=== PATIENT | female | born 2000 | race Caucasian/White ===

== ENCOUNTER 2024-05-28 08:00 | Outpatient (CLI) | payer OTHER | END 2024-05-28 23:59 | disposition home or self-care (01) | LOC: LAB.WC 08:00 | PROVIDERS: ATTEND Obstetrics & Gynecology | DX: Z36.85 Encounter for antenatal screening for Streptococcus B (principal) | CPT/HCPCS: 87081; 87797 ==

== ENCOUNTER 2024-05-28 12:50 | Outpatient (CLI) | payer OTHER ==
--- NOTE | 2024-05-28 15:05 | Ultrasound Report ---
PROCEDURE: OB Follow up INDICATIONS: OBESITY OUTSIDE/PRIOR DATING DATA: The below data below was generated using the DEQUAN of 06/23/2024 TECHNIQUE: Real-time scanning was performed of the fetus, with image documentation and biometric measurements. Endovaginal scanning: Not performed. COMPARISON: None. FINDINGS: General: A single living intrauterine gestation is present. Presentation: Vertex Placenta: Placental position is anterior, without previa. Amniotic fluid index: 10.2 cm, within normal limits for gestational age. heart rate: 132 beats per minute. Maternal cervical canal: Not evaluated biometrics: Biparietal diameter: 9.6 cm, 39 weeks 3 days, 99.5% Head circumference: 33.5 cm, 38 weeks 2 days, 70% Abdominal circumference: 32.9 cm, 36 weeks 6 days, 77% Femur length: 7.3 cm, 37 weeks 2 days, 71% Estimated gestational age from initial scan: 36 weeks 2 days Composite gestational age from present scan: 38 weeks 0 days Estimated weight and percentile: 3109 g, 81.2% Measurement variability in biometric dating: +/- 10 days from 12-20 weeks gestation, +/- 2 weeks from 20-30 weeks gestation, +/- 3 weeks at 30 weeks gestation or more. Other: Not applicable. IMPRESSION: 1.Single live intrauterine consistent with 38 weeks and 0 days. 2.Biparietal diameter is in the 99.5th percentile. Reviewed by: Agustín Vital MD on 05/28/2024 3:03 PM PDT Approved by: Agustín Vital MD on 05/28/2024 3:03 PM PDT Station ID: [id number]
== END 2024-05-28 12:51 | disposition home or self-care (01) ==
LOC: DI 12:50
PROVIDERS: ATTEND Nurse Practitioner
DX: O99.213 Obesity complicating pregnancy, third trimester (principal); O99.283 Endocrine, nutritional and metabolic diseases complicating pregnancy, third trimester; E03.9 Hypothyroidism, unspecified; Z3A.38 38 weeks gestation of pregnancy; Z36.85 Encounter for antenatal screening for Streptococcus B
CPT/HCPCS: 87081; 87797

== ENCOUNTER 2024-06-13 17:31 | Outpatient (CLI) | payer OTHER ==
[2024-06-13 18:01] VITALS: BP 117/74; O2SAT 95
--- NOTE | 2024-06-13 18:17 | PROVIDER PROGRESS NOTE ---
- HPI Chief Complaint: Other (headache, vision changes, abd pain) Current : Isabela is a 24 yo at 38w4d who presents today for evaluation of headache. She reports a headache starting yesterday which has persisted despite taking tylenol, 2 extra strength tablets, 2-3 times. Reports she has seen some spots in her vision. She has pain in her upper abdomen last night. She read about her symptoms online and was worried she had preeclampsia. Called clinic this afternoon and triage evaluation was recommended. She reports that now, in the dark room, her headache has improved, now 2/10. She denies current vision changes or upper abdominal pain. She denies ctx, LOF. + FM. She has had some pink-tinged discharge. Reports intercourse yesterday. Vital Signs Temperature 97.9 F 06/13/24 17:35 Heart Rate 116 H 06/13/24 17:35 Respiratory Rate 17 06/13/24 17:35 Blood Pressure 112/73 06/13/24 17:35 O2 Saturation 95 06/13/24 17:35 Temperature 97.9 F 06/13/24 17:48 Heart Rate 116 H 06/13/24 17:35 Respiratory Rate 17 06/13/24 17:35 Blood Pressure 117/74 06/13/24 17:52 O2 Saturation 95 06/13/24 17:35 If not protocol: Oxygen Flow, liters/minute - Exam SVE closed/50/-3 - Procedures OB Procedure Performed: NST Diagnosis/Indication for NST: Other (Headache) Findings: Reactive, Cat 1 - Plan Plan: 24 yo at 38w4d with: - Headache, improved BPs normotensive and no laboratory evidence of preeclampsia. No current vision changes or abdominal pain. Headache improved with dimmed lights. Plan for discharge home with return precautions. She is scheduled for elective IOL on Monday. Marvin Kimbrough MD
[2024-06-13 18:20] LABS: BASOPHILS % (AUTO) 0.3 %; EOSINOPHILS # (AUTO) 0.1 10^3/uL (0.0-0.7); EOSINOPHILS % (AUTO) 1.1 %; HCT - HEMATOCRIT 35.7 % (37.0-47.0); HGB - HEMOGLOBIN 11.9 g/dL (12.0-16.0); LYMPHOCYTES % (AUTO) 18.9 %; MEAN CORPUSCULAR HEMOGLOBIN 29.5 pg (27.0-31.0); MEAN CORPUSCULAR HGB CONC 33.3 g/dL (32.0-36.0); MEAN CORPUSCULAR VOLUME 88.6 fL (81.0-99.0); MEAN PLATELET VOLUME 11.6 fL (7.9-10.8); MONOCYTES # (AUTO) 0.8 10^3/uL (0.0-1.0); MONOCYTES % (AUTO) 7.2 %; NEUTROPHILS # (AUTO) 7.7 10^3/uL (1.5-6.6); NEUTROPHILS % (AUTO) 71.7 %; PLT - PLATELET COUNT 225 10^3/uL (130-450); RED BLOOD COUNT 4.03 10^6/uL (4.20-5.40); RED CELL DISTRIBUTION WIDTH 13.3 % (12.0-15.0); WHITE BLOOD COUNT 10.7 x10^3/uL (4.8-10.8)
[2024-06-13 18:35] LABS: ALBUMIN 3.4 g/dL (3.2-5.5); ALBUMIN/GLOBULIN RATIO 1.2 (1.0-2.2); BILIRUBIN,TOTAL 0.3 mg/dL (0.2-1.0); CALCIUM 9.2 mg/dL (8.5-10.3); CREATININE 0.6 mg/dL (0.6-1.3); POTASSIUM 3.8 mmol/L (3.5-4.5); TOTAL PROTEIN 6.2 g/dL (6.4-8.9)
[2024-06-13 18:48] LABS: CREATININE,URINE 167.1 mg/dL; PROTEIN/CREATININE RATIO,URINE 0.1 (<=0.2)
--- NOTE | 2024-06-20 16:12 | PROCEDURE REPORT ---
- HPI Current EDU 06/23/24 Gestation 38 Weeks and 4 Days 1 Para 0 Vital Signs Temperature 97.9 F 06/13/24 17:35 Heart Rate 116 H 06/13/24 17:35 Respiratory Rate 17 06/13/24 17:35 Blood Pressure 112/73 06/13/24 17:35 O2 Saturation 95 06/13/24 17:35 Temperature 97.9 F 06/13/24 17:48 Heart Rate 116 H 06/13/24 17:35 Respiratory Rate 17 06/13/24 17:35 Blood Pressure 117/74 06/13/24 17:52 O2 Saturation 95 06/13/24 17:35 If not protocol: Oxygen Flow, liters/minute - NST Procedure NST Procedure Start Date 06/13/24 Start Time 17:45 Stop Time 18:11 Vibroacoustic Stimulation Used No Patient States Movement Yes - Results and Plan Findings/Impression: Reactive, Cat 1 Plan: See separate note for plan.
== END 2024-06-13 19:09 | disposition home or self-care (01) ==
LOC: WFO 17:31 → FBP 17:33 → WFO 19:09
PROVIDERS: ATTEND Obstetrics & Gynecology
DX: O99.891 Other specified diseases and conditions complicating pregnancy (principal); R51.9 Headache, unspecified; R10.9 Unspecified abdominal pain; H53.9 Unspecified visual disturbance; Z3A.38 38 weeks gestation of pregnancy
CPT/HCPCS: 36415; 59025; 80053; 82570; 84156; 85025; 99215

== ENCOUNTER 2024-06-16 16:49 | Inpatient (IN) | payer OTHER ==
--- NOTE | 2024-06-16 16:55 | HISTORY & PHYSICAL EXAMINATION ---
Admit History - Visit Reason Visit Reason: Other (Induction of Labor) - : 1 Parity: 0 Premature: 0 Ectopic: 0 : 0 Care: positive: [facility] Risk/History: positive: Labor induction Smoking Status: Never smoker - Mother's Labs Mother's Blood Type: positive: A Mother's RH: positive: Positive GBS: positive: Group B Strep Positive Rubella Status: positive: Non-immune - Other Maternal History Other Maternal History: HPI: This 24 yo @ 39+0 weeks by sure LMP and confirmed by 6+3 week ultrasound. She is here for elective IOL at 39 weeks gestation. Upon arrival her cervix was closed/50%/-3/posterior/soft and vertex with intact membranes. PUENTE SCORE:3 We reviewed management options and she is agreeable to misoprostol for cervical ripening. She has been a patient [facility] since 33+4 weeks gestation following a move. Her course is complicated by elevated maternal BMI, hypothyroidism managed now on 75mcg levothyroxine daily. Hypothyroidism was diagnosed 2 years ago but levothyroxine was initiated in her first trimester. Did have a mild headache a few days ago but shortly resolved. Today she denies headache, visual changes or right upper quadrant abdominal pain. Denies significant N/V. Denies urinary urgency or dysuria. In the event of an emergency, accepts the administration of blood products. ROS: All other symptoms reviewed and were negative except per HPI. Labs: pending Last u/s EFW: 05/28/2024: 3109g, 81.2% @ 38 weeks. BPD 99.5% Total maternal weight gain: LMP 09/08/2023 11/01/2024 @ 6+3 weeks Final DEQUAN: 06/23/2024 OB Hx: G1: current Medical Hx: hypoactive thyroid, iron deficiency anemia, migraine without aura Surgical Hx: None. [place] teeth extraction Social Hx: Monogamous with male partner. Denies current use of alcohol or tobacco, marijuana or other recreational drugs. Reports that she is safe in current relationship. Family Hx: Denies family history of congenital anomalies Allergies: NKDA Medications: Levothyroxine 75mcg/day, LDASA, PNV Physical exam: Normocephalic, atraumatic Heart RRR w/o M/G/R Lungs CTAB Abdomen gravid, soft, nontender. EFW 3600 FHR baseline 150's, moderate variability, + accelerations, no decelerations No contractions palpated. Uterine resting tone soft SVE closed/50%/high/posterior/soft, vertex, membranes intact Bilateral LE's: 1+ edema Mood is good. Assessment: 24 yo G10 @ 39 weeks gestation by 6+3 wk U/S FHR 140's-150's Cat I GBS POSITIVE Plan: Admit to [facility] for term elective induction of labor misoprostol 25mcg PV q 4 hours until regular contractions. Will reassess after 4 doses. Continuous monitoring Jacuzzi PRN. Nitrous oxide PRN. Epidural PRN Maternal Request. GBS prophylaxis (ampicillin) to begin with onset of active labor or SROM. Patient verbally consents to my participation in her care in my role as a student nurse tunnel elastic operator lockstitch. EBONIE Moreno, Student Nurse Milking System Installer (Maria A Clark) Present participated in the evaluation and management of this patient. Agree with plan for induction of labor and subsequent labor. Boaz Lui MD (Boaz Lui) - HPI Current EDU 06/23/24 Gestation 39 Weeks and 1 Days 1 Vital Signs Temperature 97.9 F 06/16/24 16:59 Temperature 98.2 F 06/17/24 10:04 Heart Rate 105 H 06/17/24 09:25 Respiratory Rate 16 06/17/24 09:25 Blood Pressure 134/78 H 06/17/24 09:25 O2 Saturation 96 06/17/24 09:25 If not protocol: Oxygen Flow, liters/minute - NST Procedure NST Procedure Start Time 17:45 Stop Time 18:11 Meds/Allgy - Home Medications Home Medications: Ambulatory Orders Medication Instructions Recorded Confirmed Levothyroxine [Synthroid] 75 mcg PO QDAC 06/16/24 06/16/24 Aspirin [[place] Aspirin] 81 mg PO DAILY 06/17/24 06/17/24 No122/Iron/Folic Acid 1 each PO DAILY 06/17/24 06/17/24 [ Multi Tablet] - Allergies Allergies/Adverse Reactions: Allergies Allergy/AdvReac Type Severity Reaction Status Date / Time No Known Drug Allergies Allergy Verified 08/04/24 17:49 Physical - Abdominal Exam Vital Signs: Temp Pulse Resp BP Pulse Ox O2 Flow Rate 98.2 F 105 H 16 134/78 H 96 06/17/24 10:04 06/17/24 09:25 06/17/24 09:25 06/17/24 09:25 06/17/24 09:25 Plan for Labor - Plan For Labor I expect patient to be DC'd or transferred within 96 hours.: Yes
[2024-06-16] MEDS ORDERED: NIFEdipine 10 MG CAPSULE PO PRN (16:56)
[2024-06-16] MEDS ORDERED: CARBOPROST TROMETHAMINE 250 MCG/ML VIAL IM PRN (16:56)
[2024-06-16] MEDS ORDERED: OXYTOCIN 10 UNIT/ML VIAL IM PRN (16:56)
[2024-06-16] MEDS ORDERED: miSOPROStoL 200 MCG TABLET BC PRN (16:56)
[2024-06-16] MEDS ORDERED: TERBUTALINE 1 MG/ML VIAL SUBQ PRN (16:56)
[2024-06-16] MEDS ORDERED: miSOPROStoL 200 MCG TABLET PR PRN (16:56)
[2024-06-16] MEDS ORDERED: METHYLERGONOVINE 0.2 MG/ML VIAL IM PRN (16:56)
[2024-06-16] MEDS ORDERED: OXYTOCIN/SODIUM CHLORIDE 500 ML IV PRN (16:56)
[2024-06-16] MEDS ORDERED: hydrALAZINE INJ 20 MG/ML VIAL IVP PRN ×2 (16:56)
[2024-06-16] MEDS ORDERED: LABETALOL 20 MG/4 ML SYRINGE IVP PRN ×3 (16:56)
[2024-06-16] MEDS ORDERED: lidocaine 1% 20 ML MDV ID PRN (16:56)
[2024-06-16] MEDS ORDERED: TRANEXAMIC ACID IN NACL 1,000 MG/100 ML BAG IV PRN (16:56)
[2024-06-16] MEDS ORDERED: ONDANSETRON 4 MG/2 ML VIAL IVP PRN (17:03)
[2024-06-16 17:53] LABS: BASOPHILS % (AUTO) 0.3 %; EOSINOPHILS # (AUTO) 0.1 10^3/uL (0.0-0.7); EOSINOPHILS % (AUTO) 0.8 %; HCT - HEMATOCRIT 36.2 % (37.0-47.0); HGB - HEMOGLOBIN 12.1 g/dL (12.0-16.0); LYMPHOCYTES # (AUTO) 2.2 10^3/uL (1.5-3.5); LYMPHOCYTES % (AUTO) 18.5 %; MEAN CORPUSCULAR HEMOGLOBIN 29.7 pg (27.0-31.0); MEAN CORPUSCULAR HGB CONC 33.4 g/dL (32.0-36.0); MEAN CORPUSCULAR VOLUME 88.9 fL (81.0-99.0); MEAN PLATELET VOLUME 11.5 fL (7.9-10.8); MONOCYTES # (AUTO) 0.6 10^3/uL (0.0-1.0); MONOCYTES % (AUTO) 5.3 %; NEUTROPHILS % (AUTO) 74.1 %; PLT - PLATELET COUNT 240 10^3/uL (130-450); RED BLOOD COUNT 4.07 10^6/uL (4.20-5.40); RED CELL DISTRIBUTION WIDTH 13.2 % (12.0-15.0); WHITE BLOOD COUNT 12.1 x10^3/uL (4.8-10.8)
[2024-06-16] MEDS ORDERED: AMPICILLIN 2 GM in SODIUM CHLORIDE 0.9% MINIBAG 100 ML IV ONE (18:00)
[2024-06-16 18:09] LABS: ALBUMIN 3.5 g/dL (3.2-5.5); ALBUMIN/GLOBULIN RATIO 1.2 (1.0-2.2); BILIRUBIN,TOTAL 0.3 mg/dL (0.2-1.0); CALCIUM 9.5 mg/dL (8.5-10.3); CREATININE 0.7 mg/dL (0.6-1.3); POTASSIUM 3.3 mmol/L (3.5-4.5); TOTAL PROTEIN 6.4 g/dL (6.4-8.9)
[2024-06-16] MEDS: miSOPROStoL 100 MCG TABLET VG SCH (18:17)
[2024-06-16 18:55] LABS: CREATININE,URINE 243.5 mg/dL; PROTEIN/CREATININE RATIO,URINE 0.1 (<=0.2)
[2024-06-16] MEDS ORDERED: AMPICILLIN 1 GM in SODIUM CHLORIDE 0.9% MINIBAG 100 ML IV SCH (22:00)
--- NOTE | 2024-06-17 07:37 | PROVIDER PROGRESS NOTE ---
<Maria A Clark - Last Filed: 06/17/24 07:35> Labor Progress Note - Uterine Monitoring Uterine Monitoring Mode: positive: External toco Contraction Frequency (min/apart): 2-5 Contraction Intensity: positive: Mild Uterine Resting Tone: positive: Soft - Monitoring Monitor Mode: positive: External ultrasound Heart Rate Baseline: 135 Heart Rate Variability: positive: Moderate (6-25 bmp) Accelerations: positive: Present, 15x15 - Vaginal Exam Dilation (in cm): 1 Effacement (%): 50 Station: -3 - Labor Progress Note Labor Progress Note/Additional Text: S: Dozing. Feels tired as she didn't rest well throughout the night. Feels some tightening and mild discomfort through the director quality assurance but no pain with contractions. 4th dose of 25mcg misoprostol given PV at 0630. Her is supportive at the bedside. O: FHR 140s, few transient decelerations not clearly associated with contractions, resolved with positional change. SVE /-3 by RN exam A: 24 o @39+1 wks gestation by first trimester ultrasound and sure LMP GBS positive P: Continue with cervical ripening. Due for next dose of misoprostol at 10:30. Discussed possible CRB placement. Begin ampicillin for GBS prophylaxis with onset of active labor or ROM. Desires nitrous for pain management. Will support pain management plan per maternal preference. Will encouraged rest this morning and movement ambulation as day progresses EBONIE Moreno, Student Nurse Clinical Documentation Consultant <Boaz Lui - Last Filed: 06/17/24 13:03> Labor Progress Note - Labor Progress Note Labor Progress Note/Additional Text: Agree with plan. Continue cervical ripening. Will reassess after this dose of misoprostol
--- NOTE | 2024-06-17 12:15 | PHARMACY PROGRESS NOTE ---
- Best Possible Medication History Admit Date and Time: 06/16/24 7903 Processed by: Pharmacy Medications reviewed in ED?: No Medication History completed: Yes Patient Interview: Pt unable to participate Secondary Source(s): Physician records, Insurance records As the person ultimately responsible for medication therapy, providers are able to order a medication from an existing home medication list in [facility] via the "Reconcile Routine" prior to Confirmation of that medication by academic support assistant. Such practice is discouraged except when the physician, in their clinical judgment, deems that a medical need exists for a medication without regard to previous use.
[2024-06-17] MEDS: fentaNYL 100 MCG/2 ML VIAL IVP PRN (12:24)
[2024-06-17] MEDS: SODIUM CHLORIDE FLUSH 0.9% 10 ML SYRINGE IVP SCH (12:28)
[2024-06-17] MEDS: SODIUM CHLORIDE FLUSH 0.9% 10 ML SYRINGE IVP PRN (12:28)
--- NOTE | 2024-06-17 12:52 | PROVIDER PROGRESS NOTE ---
<Maria A Clark - Last Filed: 06/17/24 12:42> Labor Progress Note - Uterine Monitoring Uterine Monitoring Mode: positive: External toco Contraction Frequency (min/apart): irregular Contraction Intensity: positive: Mild Uterine Resting Tone: positive: Soft - Monitoring Monitor Mode: positive: External ultrasound Heart Rate Baseline: 145 Heart Rate Variability: positive: Moderate (6-25 bmp) Accelerations: positive: Present, 15x15 Decelerations: positive: Intermittent (<50% x20 min) Strip Review: positive: Category I, Category II - Vaginal Exam Dilation (in cm): 1 Effacement (%): thick Station: -3 Cervical Position: Anterior - Labor Progress Note Labor Progress Note/Additional Text: S: Intermittent contractions, feeling some increasing tightening. Has been relaxing since this morning's cervical check. O: FHR 140's, intermittent decelerations not associated with contractions SVE1/thick/high/anterior vertex. A: 24yo @ 39+1 weeks gestation by first trimester ultrasound. Irregular contractions with irritability. Poor toco tracing at times despite frequent adjustments by RN team. Cervical ripening s/p misoprostol x4 doses GBS positive. P: Placement of cervical ripening balloon placement by Dr. Lui. Administer next misoprostol dose as scheduled. Begin ampicillin for GBS prophylaxis per protocol with onset of active labor/ROM. Support maternal pain management requests Continue to encourage ambulation. EBONIE Moreno, Student Nurse Field Support Engineer <Boaz Lui - Last Filed: 06/17/24 13:02> Labor Progress Note - Monitoring Strip Review: negative: Category II - Labor Progress Note Labor Progress Note/Additional Text: CRB placed after discussion with patient. Tolerated well, but feeling cramping as expected. Using nitrous.Category 1 tracing. Anticipate . Epidural at patient request.
[2024-06-17] MEDS: LACTATED RINGERS 1,000 ML IV PRN (13:21)
[2024-06-17] MEDS ORDERED: ROPIVACAINE 0.2% 200 MG/100 ML BAG EP ONE (13:24)
[2024-06-17] MEDS ORDERED: LIDOCAINE 2%-EPI 1:100000 20 ML MDV ONE (13:24)
--- NOTE | 2024-06-17 15:17 | ANESTHESIA ---
Pre-Anesthesia VS, & Labs - Diagnosis labor pain - Procedure labor epidural Vital Signs: Temp Pulse Resp BP Pulse Ox O2 Flow Rate 36.8 C 105 H 16 134/78 H 96 06/17/24 10:04 06/17/24 09:25 06/17/24 09:25 06/17/24 09:25 06/17/24 09:25 Height: 5 ft 4 in Weight (kg): 126.099 kg Body Mass Index: 47.7 BMI Classification: Morbidly Obese - NPO Other - Is Patient ?: Yes - Lab Results Current Lab Results: Laboratory Tests 06/16/24 18:44: Blood Type Recheck A POSITIVE 06/16/24 17:40: Sodium 134 L, Potassium 3.3 L, Chloride 102, Carbon Dioxide 22, Anion Gap 10.0, BUN 11, Creatinine 0.7, Estimated GFR (MDRD) 101, Glucose 149 H, Calcium 9.5, Total Bilirubin 0.3, AST 15, ALT 11, Alkaline Phosphatase 109, Total Protein 6.4, Albumin 3.5, Globulin 2.9, Albumin/Globulin Ratio 1.2 06/16/24 17:40: WBC 12.1 H, RBC 4.07 L, Hgb 12.1, Hct 36.2 L, MCV 88.9, MCH 29.7, MCHC 33.4, RDW 13.2, Plt Count 240, MPV 11.5 H, Neut # (Auto) 9.0 H, Lymph # (Auto) 2.2, [place] # (Auto) 0.6, Eos # (Auto) 0.1, Baso # (Auto) 0.0, Absolute Nucleated RBC 0.00, Nucleated RBC % 0.0 06/16/24 17:40: Blood Type A POSITIVE, Antibody Screen NEGATIVE 06/16/24 17:40: TSH 0.39 Fish Bones: 06/16/24 17:40 06/16/24 17:40 Home Medications and Allergies Home Medications: Ambulatory Orders Levothyroxine [Synthroid] 75 mcg PO QDAC 06/16/24 Aspirin [[place] Aspirin] 81 mg PO DAILY 06/17/24 No122/Iron/Folic Acid [ Multi Tablet] 1 each PO DAILY 06/17/24 Active Medications Acetaminophen (Acetaminophen 500 Mg Tablet) 1,000 mg PO Q8H PRN PRN Reason: Mild Pain or Fever>38C(100.4F) Carboprost Tromethamine (Carboprost Tromethamine 250 Mcg/Ml Vial) 250 mcg IM .ONCE PRN PRN Reason: Hemorrhage Fentanyl (Fentanyl 100 Mcg/2 Ml Vial) 50 mcg IVP Q1H PRN PRN Reason: Severe Pain (score 7-10) Last Admin: 06/17/24 12:27 Dose: 50 mcg Hydralazine HCl (Hydralazine Inj 20 Mg/Ml Vial) 5 - 10 mg IVP Q20M PRN; Protocol PRN Reason: SBP> or= 160 OR DBP> or= 110 Hydralazine HCl (Hydralazine Inj 20 Mg/Ml Vial) 10 mg IVP .ONCE PRN; Protocol PRN Reason: SBP> or= 160 OR DBP> or= 110 Lactated Ringer's (Lr) 500 mls @ 999 mls/hr IV PRN PRN PRN Reason: distress Last Admin: 06/17/24 13:21 Dose: 999 mls/hr Oxytocin/Sodium Chloride (Pitocin/Sodium Chloride) 500 mls @ 999 mls/hr IV PRN PRN; Protocol PRN Reason: POST- HEMORR PREVENTION Tranexamic Acid (Tranexamic 1,000 Mg/100ml-Nacl) 1,000 mg in 100 mls @ 600 mls/hr IV Q30M PRN PRN Reason: EBL >1200mL and within 3hr Ampicillin Sodium 1 gm/ Sodium (Chloride) 100 mls @ 200 mls/hr IV Q4H ESTEFANI Labetalol HCl (Labetalol 20 Mg/4 Ml Syringe) 20 - 80 mg IVP Q10M PRN; Protocol PRN Reason: SBP> or= 160 OR DBP> or= 110 Labetalol HCl (Labetalol 20 Mg/4 Ml Syringe) 20 mg IVP .ONCE PRN; Protocol PRN Reason: SBP> or= 160 OR DBP> or= 110 Labetalol HCl (Labetalol 20 Mg/4 Ml Syringe) 20 - 40 mg IVP Q10M PRN; Protocol PRN Reason: SBP> or= 160 OR DBP> or= 110 Lidocaine HCl (Lidocaine 1% 20 Ml Mdv) 20 ml ID .ONCE PRN PRN Reason: PERINEAL REPAIR Stop: 06/19/24 16:56 Methylergonovine Maleate (Methylergonovine 0.2 Mg/Ml Vial) 0.2 mg IM .ONCE PRN PRN Reason: Hemorrhage Misoprostol (Misoprostol 200 Mcg Tablet) 600 mcg BC .ONCE PRN PRN Reason: Hemorrhage Misoprostol (Misoprostol 200 Mcg Tablet) 800 mcg NC .ONCE PRN PRN Reason: Hemorrhage Misoprostol (Misoprostol 100 Mcg Tablet) 25 mcg VG Q4H [facility] Last Admin: 06/17/24 06:30 Dose: 25 mcg Nifedipine (Nifedipine 10 Mg Capsule) 10 - 20 mg PO Q20M PRN; Protocol PRN Reason: SBP> or= 160 OR DBP> or= 110 Ondansetron HCl (Ondansetron 4 Mg/2 Ml Vial) 4 mg IVP Q6HR PRN PRN Reason: Nausea / Vomiting Oxytocin (Oxytocin 10 Unit/Ml Vial) 10 unit IM .ONCE PRN PRN Reason: Step One if no IV access. Sodium Chloride (Sodium Chloride Flush 0.9% 10 Ml Syringe) 10 ml IVP PRN PRN PRN Reason: NEEDED PER PROVIDER ORDERS Last Admin: 06/17/24 13:21 Dose: 10 ml Sodium Chloride (Sodium Chloride Flush 0.9% 10 Ml Syringe) 10 ml IVP Q8H [facility] Last Admin: 06/17/24 12:28 Dose: 10 ml Terbutaline Sulfate (Terbutaline 1 Mg/Ml Vial) 0.25 mg SUBQ .ONCE PRN PRN Reason: Tachystole Levothyroxine [Synthroid] 75 mcg PO QDAC 06/16/24 Aspirin [[place] Aspirin] 81 mg PO DAILY 06/17/24 No122/Iron/Folic Acid [ Multi Tablet] 1 each PO DAILY 06/17/24 Allergies/Adverse Reactions: Allergies Allergy/AdvReac Type Severity Reaction Status Date / Time No Known Drug Allergies Allergy Verified 06/16/24 17:49 Anes History & Medical History - Anesthetic History Anesthesia Complications: reports: No previous complications Family history of Anesthesia Complications: Denies Family history of Malignant Hyperthermia: Denies - Medical History Cardiovascular: reports: None Pulmonary: reports: None Gastrointestinal: reports: None Urinary: reports: None Neuro: reports: Migraines Musculoskeletal: reports: None Endocrine/Autoimmune: reports: HyPOthyroidism Blood Disorders: reports: None Skin: reports: None Smoking Status: Never smoker Psychosocial: reports: No issues indicated History of Cancer?: No Other Past Medical History: morbid obesity - Obstetrical History : 1 Parity: 0 Events: reports: Labor induction Exam General: Alert, Oriented x3, Cooperative Dental: WNL Mouth Openin Fingerbreadth Neck Mobility: Normal Mallampati classification: III Thyromental Distance: less than 4 cm Respiratory: Lungs clear Cardiovascular: Regular rate Plan Anesthesia Type: Epidural Consent for Procedure(s) Verified and Reviewed: Yes Code Status: Attempt Resuscitation ASA classification: 3-Severe systemic disease Is this case an emergency?: No
[2024-06-17] MEDS ORDERED: NALOXONE 0.4 MG/ML VIAL IVP PRN (15:18)
[2024-06-17] MEDS ORDERED: ePHEDrine 50 MG/ML VIAL IVP PRN (15:18)
[2024-06-17] MEDS ORDERED: METOCLOPRAMIDE 10 MG/2 ML VIAL IVP PRN (15:18)
[2024-06-17] MEDS ORDERED: NALBUPHINE 10 MG/ML AMP IVP PRN (15:18)
[2024-06-17] MEDS ORDERED: ONDANSETRON 4 MG/2 ML VIAL IVP PRN (15:18)
[2024-06-17] MEDS ORDERED: diphenhydrAMINE INJ 50 MG/ML VIAL IVP PRN (15:18)
[2024-06-17] MEDS: LACTATED RINGERS 1,000 ML IV SCH (16:41)
--- NOTE | 2024-06-17 16:47 | PROVIDER PROGRESS NOTE ---
Labor Progress Note - Uterine Monitoring Uterine Monitoring Mode: positive: External toco Contraction Frequency (min/apart): 2-4 Contraction Intensity: positive: Mild - Monitoring Monitor Mode: positive: External ultrasound Heart Rate Baseline: 135 Heart Rate Variability: positive: Moderate (6-25 bmp) Accelerations: positive: Present, 15x15 Decelerations: positive: None Strip Review: positive: Category I - Labor Progress Note Labor Progress Note/Additional Text: CRB still in place. Did have intermittent late and variable decelerations followed by category 1 tracing. Discussed position changes and fluid level. it had been category 1, started oxytocin, but intermittent variable decelerations. Concerning FHT, but will continue to monitor. Contractions late in position, but mostly short in duration, making variable more likely. If tolerating, will continue labor in homes of engaging head as balloon is expelled and possible amnioinfusion. Patient has epidural in place. Discussed risks of intolerance with patient.
[2024-06-17] MEDS: OXYTOCIN/SODIUM CHLORIDE 500 ML IV SCH (17:05)
[2024-06-17] MEDS: AMPICILLIN 2 GM in SODIUM CHLORIDE 0.9% MINIBAG 100 ML IV ONE (19:31)
--- NOTE | 2024-06-17 19:42 | PROVIDER PROGRESS NOTE ---
Labor Progress Note - Uterine Monitoring Uterine Monitoring Mode: positive: External toco Contraction Frequency (min/apart): 2-4 - Monitoring Monitor Mode: positive: External ultrasound Heart Rate Baseline: 145 Heart Rate Variability: positive: Moderate (6-25 bmp) Accelerations: positive: Present, 15x15 Decelerations: positive: Late, Intermittent (<50% x20 min) - Vaginal Exam Dilation (in cm): 5 Effacement (%): 50 Station: -3 Cervical Position: Midposition - Labor Progress Note Labor Progress Note/Additional Text: CRB removed with gentle traction. Now 5 cm. Noemy regularly still. More frequent mixture of late and variable decelerations. Decreased oxytocin to 2munits/min. Still having accelerations and moderate variability with periods of minimal. No sign of acute acidemia. Can continue at current dose an assess. Plan for head engagement, amniotomy, and likely amnioinfusion.
[2024-06-17] MEDS: ACETAMINOPHEN 500 MG TABLET PO PRN (20:37)
[2024-06-17] MEDS: AMPICILLIN 1 GM in SODIUM CHLORIDE 0.9% MINIBAG 100 ML IV SCH (23:48)
[2024-06-17] MEDS: ROPIVACAINE 0.2% 200 MG/100 ML BAG EP PRN (23:57)
--- NOTE | 2024-06-18 04:38 | PROVIDER PROGRESS NOTE ---
Labor Progress Note - Uterine Monitoring Uterine Monitoring Mode: positive: External toco Contraction Frequency (min/apart): 2-4 - Monitoring Monitor Mode: positive: External ultrasound Heart Rate Baseline: 150 Heart Rate Variability: positive: Moderate (6-25 bmp) Accelerations: positive: Present, 15x15 Decelerations: positive: Late, Intermittent (<50% x20 min) - Vaginal Exam Dilation (in cm): 6 Effacement (%): 80 Station: -1 - Labor Progress Note Labor Progress Note/Additional Text: Patient remains relatively unchanged. After consent, amniotomy was performed. Small amount of clear fluid. IUPC placed oxytocin titration and possible IV infusion. Patient has had intermittent category 2 tracing followed by periods of category 1. Overall reassuring.
--- NOTE | 2024-06-18 07:59 | PROVIDER PROGRESS NOTE ---
Labor Progress Note - Uterine Monitoring Uterine Monitoring Mode: positive: IUPC Contraction Frequency (min/apart): 2-3 Contraction Intensity: positive: Strong - Monitoring Monitor Mode: positive: External ultrasound Heart Rate Baseline: 150 Heart Rate Variability: positive: Absent; amplitude undetectable, Minimal (0-5 bpm), Moderate (6-25 bmp) Accelerations: positive: Present, 15x15 Decelerations: positive: Late, Intermittent (<50% x20 min) Strip Review: positive: Category II - Labor Progress Note Labor Progress Note/Additional Text: Patient remains unchanged. She desires section at this time. We discussed recommendation of waiting 4 hours of adequate MVUs monitored with internal monitors on oxytocin and we are approximately 3.5 hours, so this seems reasonable at her request. Can recheck prior to OR if she desires. section was recommended. Risks, benefits and alternatives were discussed including but not limited to infection, bleeding that may require blood products or hysterectomy for life saving measures, injury to surrounding organs including but not limited to bowel, bladder, ureters, tubes and ovaries and/or the baby. Should injury occur it could require longer/additional surgery to repair. The patient stated understanding and desired to proceed. All questions were answered posed by patient.
[2024-06-18] MEDS ORDERED: ceFAZolin (2G) 2 GM in SODIUM CHLORIDE 0.9% MINIBAG 100 ML IV SCH (08:00)
[2024-06-18] MEDS ORDERED: AZITHROMYCIN INJ 500 MG in SODIUM CHLORIDE 0.9% 250 ML IV SCH (08:00)
[2024-06-18] MEDS ORDERED: LACTATED RINGERS 1,000 ML IV SCH ×3 (08:00→11:00)
[2024-06-18] MEDS ORDERED: CEFAZOLIN IV SCH (08:05)
[2024-06-18] MEDS ORDERED: SODIUM CHLORIDE 0.9% IV SCH (08:05)
[2024-06-18] MEDS ORDERED: ceFAZolin 1 GM VIAL ONE (08:09)
[2024-06-18] MEDS ORDERED: ceFAZolin 3 GM in SODIUM CHLORIDE 0.9% 100ML 100 ML IV SCH (09:00)
[2024-06-18] MEDS ORDERED: fentaNYL 100 MCG/2 ML VIAL ONE ×3 (09:02→11:07)
[2024-06-18] MEDS ORDERED: PROPOFOL 200 MG/20 ML VIAL IVP ONE (09:05)
[2024-06-18] MEDS ORDERED: ROCURONIUM 50 MG/5 ML VIAL ONE (09:38)
[2024-06-18] MEDS ORDERED: ePHEDrine 50 MG/ML VIAL IVP PRN (09:47)
[2024-06-18] MEDS ORDERED: MORPHINE 2 MG/ML CARPUJECT IVP PRN (09:47)
[2024-06-18] MEDS ORDERED: METOCLOPRAMIDE 10 MG/2 ML VIAL IVP PRN (09:47)
[2024-06-18] MEDS ORDERED: NALOXONE 0.4 MG/ML VIAL IVP PRN (09:47)
[2024-06-18] MEDS ORDERED: ATROPINE ABBOJECT 1 MG/10 ML SYRINGE IVP PRN (09:47)
[2024-06-18] MEDS ORDERED: ONDANSETRON 4 MG/2 ML VIAL IVP PRN (09:47)
[2024-06-18] MEDS ORDERED: HYDROmorphone 0.5 MG/0.5 ML SYRINGE IVP PRN (09:47)
[2024-06-18] MEDS ORDERED: TRANEXAMIC ACID 1,000 MG/10 ML VIAL ONE (09:51)
[2024-06-18] MEDS ORDERED: ROPIVACAINE 0.5% PF 20 ML VIAL ONE (10:10)
[2024-06-18] MEDS ORDERED: ONDANSETRON ODT 4 MG TABLET TL PRN ×2 (10:24)
[2024-06-18] MEDS ORDERED: SODIUM CHLORIDE FLUSH 0.9% 10 ML SYRINGE IVP PRN (10:24)
[2024-06-18] MEDS ORDERED: OXYTOCIN/SODIUM CHLORIDE 500 ML IV PRN (10:24)
[2024-06-18] MEDS ORDERED: DEXAMETHASONE 4 MG/ML VIAL ONE (10:26)
--- NOTE | 2024-06-18 10:26 | OPERATIVE REPORT ---
Operative Report - General Admit Date: 06/16/24 Planned Procedure: Primary low-transverse section Pre-Op Diagnosis: Failure to progress Procedure Performed: Primary low-transverse section Post Op Diagnosis: Status post primary low-transverse section - Procedure Note Primary Surgeon: Boaz Lui MD Secondary Surgeon: EBONIE Moreno Anesthesia Provider: Mariah Garcia CRNA Anesthesia Technique: General ET tube Pathology: None Estimated Blood Loss (mL): 850 Findings: Normal-appearing uterus, tubes, ovaries. Healthy with Apgars of 8/9. Nuchal cord . Complications: None - Other Other Information/Narrative: Patient is a 24-year-old female who was being induced at term. She was seen misoprostol initially for cervical ripening followed by cervical ripening balloon, oxytocin, amniotomy. She had intermittent category 2 tracing, but was overall reassuring. After amniotomy with internal monitoring, she failed to progress and remained 5 to 6 cm. She requested a section and has been monitored for approximately 4 hours without change with adequate [place] units. section was recommended. Risks, benefits and alternatives were discussed including but not limited to infection, bleeding that may require blood products or hysterectomy for life saving measures, injury to surrounding organs including but not limited to bowel, bladder, ureters, tubes and ovaries and/or the baby. Should injury occur it could require longer/additional surgery to repair. The patient stated understanding and desired to proceed. All questions were answered posed by patient. Prior to being taken to the OR, 3 g of cefazolin and 500 mg of azithromycin were administered. The patient was taken to the operating room where regional anesthesia attempted, but was not obtained. She had an epidural previously that had worn off, and the spinal did not set up. She then as then prepared and draped in the usual sterile fashion in the dorsal supine position with a leftward tilt displacing the uterus. Hull was draining to gravity. SCDs were on bilateral lower extremities. Time out was taken. The patient was then put under general anesthesia. A pfannenstiel skin incision was then made with the scalpel and carried through to the underlying layer of fascia. The fascia was incised in the midline and the incision extended laterally with the Hannah scissors. The superior aspect of the facial incision was then grasped with the Shabnam clamps, elevated and the underlying rectus muscles dissected off sharply. Attention was then turned to the inferior aspect of this incision which in a similar fashion was grasped, elevated with the Shabnam clamps and the rectus muscle dissected off sharply. The rectus muscles were in the midline. The peritoneum identified, grasped with the pick-ups and entered sharply with the Metzenbaum scissors. The peritoneal incision was then extended superiorly and inferiorly with good visualization of the bladder. The bladder blade was inserted. The vesicouterine peritoneum was identified, grasped with the pick-ups, and entered sharply with Metzenbaum scissors. This incision was then extended laterally and the bladder flap created digitally. The bladder blade was reinserted. The lower uterine segment was identified and incised in a transverse fashion with the scalpel. The uterine incision was then extended bluntly laterally. The bladder blade was removed. The fetus was in a cephalic presentation. The infants head delivered atraumatically. The anterior shoulders were delivered followed by the posterior shoulders then the remainder of the body. The infants mouth and nose were bulb suctioned. The umbilical cord was clamped times two and cut. The was handed to the pediatric team. The placenta was removed with gentle traction. Oxytocin was added to the IV fluid and was allowed to run freely. The uterus was exteriorized and cleared of all clots and debris. The uterine incision was inspected and found to be without any extensions and was repaired with 0 Vicryl in a running, locked fashion. A second imbricating layer was performed. Upon inspection, the repaired hysterotomy was found to be hemostatic. The uterus was firm and returned to the abdomen. The gutters were cleared of all clots and debris. The muscle layer was examined and found to be hemostatic. The fascia was reapproximated with 0 Vicryl in a running fashion. The subcutaneous tissue was closed with 2 layers of 2-0 Vicryl. The skin was closed in a subcuticular fashion with 4-0 Monocryl. The patient tolerated the procedure well. Sponge, lap and needle counts were correct times three. The patient was taken to the recovery room in stable condition. I appreciate the assistance of EBONIE Moreno during this procedure, and the assistance in retraction, visualization, dissection, and overall assistance during the case were instrumental to the patient's wellbeing.
[2024-06-18] MEDS: LACTATED RINGERS 800 ML IV ONE ×2 (10:51→11:19)
[2024-06-18] MEDS: fentaNYL 100 MCG/2 ML VIAL IVP PRN (11:09)
[2024-06-18] MEDS: ACETAMINOPHEN 500 MG TABLET PO SCH (12:00)
[2024-06-18] MEDS: KETOROLAC 30 MG/ML VIAL IVP SCH (12:00)
--- NOTE | 2024-06-18 12:21 | ANESTHESIA POST OP EVALUATION ---
Anesthesia Post Eval - Post Anesthesia Eval Vitals: Last Vital Signs Temp 36.5 C 06/18/24 11:15 Pulse 101 H 06/18/24 11:15 Resp 16 06/18/24 11:15 BP 144/84 H 06/18/24 11:15 Pulse Ox 99 06/18/24 11:15 O2 Flow Rate CV Function Including HR & BP: Stable Pain Control: Satisfactory Nausea & Vomiting: Negative Mental Status: Baseline Respiratory Status: Airway Patent Hydration Status: Satisfactory Anesthesia Complications: None
[2024-06-18] MEDS ORDERED: SODIUM CHLORIDE FLUSH 0.9% 10 ML SYRINGE IVP SCH (17:00)
[2024-06-19] MEDS: DOCUSATE SODIUM 100 MG CAPSULE PO SCH (00:36)
[2024-06-19 05:35] LABS: BASOPHILS % (AUTO) 0.2 %; EOSINOPHILS % (AUTO) 0.1 %; HCT - HEMATOCRIT 33.2 % (37.0-47.0); LYMPHOCYTES # (AUTO) 1.6 10^3/uL (1.5-3.5); LYMPHOCYTES % (AUTO) 8.9 %; MEAN CORPUSCULAR HEMOGLOBIN 29.6 pg (27.0-31.0); MEAN CORPUSCULAR HGB CONC 33.1 g/dL (32.0-36.0); MEAN CORPUSCULAR VOLUME 89.5 fL (81.0-99.0); MEAN PLATELET VOLUME 11.9 fL (7.9-10.8); MONOCYTES # (AUTO) 0.6 10^3/uL (0.0-1.0); MONOCYTES % (AUTO) 3.2 %; NEUTROPHILS # (AUTO) 15.9 10^3/uL (1.5-6.6); NEUTROPHILS % (AUTO) 86.3 %; PLT - PLATELET COUNT 222 10^3/uL (130-450); RED BLOOD COUNT 3.71 10^6/uL (4.20-5.40); RED CELL DISTRIBUTION WIDTH 13.5 % (12.0-15.0); WHITE BLOOD COUNT 18.4 x10^3/uL (4.8-10.8)
[2024-06-19] MEDS: SIMETHICONE CHEW 80 MG TABLET PO PRN (06:00)
[2024-06-19] MEDS ORDERED: LEVOTHYROXINE 75 MCG TABLET PO SCH (07:00)
[2024-06-19] MEDS: ENOXAPARIN 40 MG/0.4 ML SYRINGE SUBQ SCH (08:40)
[2024-06-19] MEDS: IBUPROFEN 600 MG TABLET PO SCH (12:00)
--- NOTE | 2024-06-19 20:06 | PROVIDER PROGRESS NOTE ---
Subjective - Prog Note Date Prog Note Date: 06/19/24 Prog Note Time: 14:00 - Subjective Subjective: feeling tired. not very well this minute. has gotten up earlier. Objective - Vital Signs/Intake & Output Vital Signs: reviewed Intake & Output: Intake & Output 06/16/24 06/17/24 06/18/24 06/19/24 23:59 23:59 23:59 23:59 Intake Total 450 376.733 200 800 Output Total 50 850 Balance 450 326.733 -650 800 - Objective General Appearance: positive: No acute distress, Other Respiratory: positive: No respiratory distress Abdomen: positive: Non-tender, Other (wound healing well. bandage removed. steri strips in place. no erythema.) Skin: positive: Color nml Extremities: positive: Non-tender, Pedal edema (2+) - Lab Results Fish Bones: 06/19/24 05:22 06/16/24 17:40 Other Labs: Lab Results x24hrs 06/19/24 Range/Units 05:22 WBC 18.4 H (4.8-10.8) x10^3/uL RBC 3.71 L (4.20-5.40) 10^6/uL Hgb 11.0 L (12.0-16.0) g/dL Hct 33.2 L (37.0-47.0) % MCV 89.5 (81.0-99.0) fL MCH 29.6 (27.0-31.0) pg MCHC 33.1 (32.0-36.0) g/dL RDW 13.5 (12.0-15.0) % Plt Count 222 (130-450) 10^3/uL MPV 11.9 H (7.9-10.8) fL Neut # (Auto) 15.9 H (1.5-6.6) 10^3/uL Lymph # (Auto) 1.6 (1.5-3.5) 10^3/uL Boundary # (Auto) 0.6 (0.0-1.0) 10^3/uL Eos # (Auto) 0.0 (0.0-0.7) 10^3/uL Baso # (Auto) 0.0 (0.0-0.1) 10^3/uL Absolute Nucleated RBC 0.00 x10^3/uL Nucleated RBC % 0.0 /100WBC Assessment/Plan - Problem List (1) Delivery by section Impression: recovery within normal. encouraged ambulation, shower. IV removed. rest.
[2024-06-20 11:10] VITALS: BP 117/72; O2SAT 98
--- NOTE | 2024-06-20 13:12 | DISCHARGE SUMMARY ---
Discharge Summary Admit Date: 06/16/24 Discharge Date: 06/20/24 Discharging Provider: Marvin Kimbrough MD Discharge Disposition: 01 Home, Self Care - HPI History of Present Illness: Admission Diagnosis: - SIUP at 39w0d - Hypothyroidism - Class 3 obesity - GBS + - Rh + - Rubella non immune - Varicella non immune Final Diagnosis: - Same, delivered Procedures: primary LTCS, EBL 850cc Hospital Course: Isabela is a 24 yo who presented for elective IOL. She underwent cervical ripening with misoprostol followed by cervical ripening balloon and then oxytocin and amniotomy. She progressed to 5-6cm but then was unchanged after 4 hrs of adequate MVUs and requested delivery. pLTCS was uncomplicated. course has been uncomplicated. Condition on Discharge: SUBJECTIVE: day 2 The patient feels well overall. Pain is well controlled with current medications. The baby is doing well. She is breastpumping and feeding baby via bottle. She is ambulating well, tolerating normal diet, urinating without difficulty. Flatus has been passed and she has had a BM. Lochia is reported as light She would like to go home today. OBJECTIVE: Vital signs reviewed. GENERAL: NAD CHEST: non labored respirations ABD: soft, appropriately TTP fundus firm INCISION: Incision is clean and dry with steri strips in place. EXT: trace lower extremity edema; No evidence of DVT LAB & IMAGING STUDIES: See below PLAN: Plan for discharge home with follow up in clinic in 1 week. Reviewed home care instructions and medications. Patient counseled regarding signs and symptoms of infection, excessive bleeding, vaginal rest and activity restrictions. Contraceptive plans to be formalized at visit. - ALLERGIES Allergies/Adverse Reactions: Allergies Allergy/AdvReac Type Severity Reaction Status Date / Time No Known Drug Allergies Allergy Verified 06/16/24 17:49 - MEDICATIONS Home Medications: Ambulatory Orders Medication Instructions Recorded Confirmed Levothyroxine [Synthroid] 75 mcg PO QDAC 06/16/24 06/16/24 Aspirin [Dimock Aspirin] 81 mg PO DAILY 06/17/24 06/17/24 No122/Iron/Folic Acid 1 each PO DAILY 06/17/24 06/17/24 [ Multi Tablet] Acetaminophen [Tylenol] 650 mg PO Q6H PRN #30 tab 06/20/24 Ibuprofen [Motrin] 600 mg PO Q6H PRN #30 tab 06/20/24 Sennosides/Docusate Sodium 1 each PO 1-2XD #14 tab 06/20/24 [Senna-Docusate Sodium Tablet] oxyCODONE [Roxicodone] 5 mg PO Q6H #10 tablet 06/20/24 - LABS Result Diagrams: 06/19/24 05:22 06/16/24 17:40
[2024-06-20] MEDS: oxyCODONE 5 MG TABLET PO PRN (14:00)
[2024-06-20] MEDS: MEASLES,MUMPS & RUBELLA VACC 0.5 ML VIAL SUBQ ONE (14:01)
[2024-06-20] MEDS ORDERED: HEPATITIS B VACCINE (PED) 10 MCG/0.5 ML SYRINGE IM ONE (14:23)
[2024-06-20] MEDS: VARICELLA VACCINE LIVE/PF 1,350 UNIT/0.5 ML VIAL SUBQ ONE (14:40)
--- NOTE | 2024-06-20 16:43 | Labor Flowsheet ---
Labor Flowsheet Datetime Report Generated by CPN: 06/20/2024 16:43 Datetime: 06/18/2024 19:01 Membranes Ruptured Date/Time: 06/18/2024 04:30 Cervical Ripening Agents Other: Cytotec Datetime: 06/18/2024 08:16 VITAL SIGNS NBP Sys/Kaye/Mean (mmHg): 116 : 62 : 75 Pulse: 113 LaborFlag: Labor Datetime: 06/18/2024 08:13 Patient Care Comments: EFM disconnected, patient transported from 2102 to OR 1 via bed. Datetime: 06/18/2024 08:10 SpO2 (%): 98 Datetime: 06/18/2024 08:07 Contraction Comments: IUPC removed Datetime: 06/18/2024 08:00 MEDICATIONS Pitocin (milliunits): Discontinued COMMUNICATION Communication: RN at Bedside; RN Reviewed Strip; Provider at Bedside Communication Comments: Dr. Lui at bedside discussing POC with patient. Patient requesting C/S at this time. Datetime: 06/18/2024 07:43 Exam by: K. Burckhardt, SALES ORDER CLERK Vaginal Exam Comments: unchanged Datetime: 06/18/2024 06:30 UTERINE ACTIVITY Monitor Mode: External Frequency (min): 2-4 Quality: Moderate Pattern: Normal: <= 5 Contractions in 10 Minutes Resting Tone (Palpate): Relaxed MONTE[place] UNITS (Computed) Contractions in Ten Minutes: 5 IUPC Average Intensity: 55 IUPC Average Resting Tone: 20 [place] Units (mmHg): 175 ASSESSMENT A Monitor Mode: External US FHR Baseline Rate : 150 Variability: Moderate 6-25 bpm Accelerations: 15X15 Decelerations: None Category: Category I Datetime: 06/18/2024 05:01 Temperature (C): 36.7 Datetime: 06/18/2024 04:30 Monitor Interventions for UA: IUPC Inserted Membrane Status: Ruptured Membranes Rupture Method: Artificial Amniotic Fluid Color: Clear Amniotic Fluid Amount: Small Amniotic Fluid Odor: Normal Datetime: 06/18/2024 04:11 Medication Comments: 500cc lR bolus Provider Notified (Name): Dr.Hu Datetime: 06/18/2024 03:29 Duration (sec): 60-100 Datetime: 06/18/2024 01:29 Comments: min-mod variability Datetime: 06/18/2024 01:14 FHR Baseline Changes: No Baseline Change Datetime: 06/18/2024 00:49 Patient Position/Activity: High Fowlers Datetime: 06/18/2024 00:47 Vaginal Bleeding: Scant Datetime: 06/17/2024 23:48 Antibiotics: Ampicillin IV 1 Gm Datetime: 06/17/2024 23:45 Pitocin Checklist: At Least 1 Acceleration of 15 bpm x 15 Seconds in 30 Minutes or Adequate Variabi lity; No More than 1 Late Deceleration Occurred in Past 30 Minutes; No More than 2 Variable Decelerat ions > 60 Seconds in Duration and decreasing >60 bpm in 30 minutes; No More than 5 Uterine Contractio ns in 10 Minutes for any 20 Minute Interval; Uterus Palpates Soft between Contractions Datetime: 06/17/2024 23:21 Monitor Interventions for FHR: Ultrasound Adjusted Datetime: 06/17/2024 21:31 I/O Interventions: Clear Liquids Given Datetime: 06/17/2024 20:52 VAGINAL EXAM Dilatation (cm): 6.0 Effacement (%): 80 Station: -1 Cervix, Consistency: Soft Cervix, Position: Midposition Datetime: 06/17/2024 20:37 Analgesics/Sedatives: Tylenol (mg) @ 1000 Datetime: 06/17/2024 20:33 PAIN Pain Scale: 2 Pain Assessment Comments: pt requesting tylenol for HUNT Datetime: 06/17/2024 19:57 Provider Reviewed Strip: Yes Datetime: 06/17/2024 19:42 DTR's/Clonus: No Clonus Breath Sounds, Left: Clear and Equal Breath Sounds, Right: Clear and Equal Datetime: 06/17/2024 19:09 Headache: Generalized Maternal Comments: pt reports feeling slight HUNT on left jew, states it started shortly after epi dural placement, rating 1/10 TEACHING Plan of Care: Plan of Care Discussed Labor/Induction: Antibiotic Use Datetime: 06/17/2024 15:15 Oxygen Method: Room Air Datetime: 06/17/2024 14:43 PATIENT CARE IV/Blood Work: IV Infusing per Order Datetime: 06/17/2024 14:38 Anesthesia Comments: MEDICAID SPECIALIST changing pump setting Datetime: 06/17/2024 14:30 Notification Reason: Status Update; Status Datetime: 06/17/2024 14:13 Pain Coping: Sleeping Datetime: 06/17/2024 14:10 Vital Sign Comments: States she has a feeling in her chest, requests HOB to be raised Datetime: 06/17/2024 14:01 Epidural Procedure Other: Pump Started Datetime: 06/17/2024 14:00 Pain Presence: Intermittent Pain Type: Contraction Pain Location: Abdomen Pain Relief Measures: Epidural Given Datetime: 06/17/2024 13:58 Respirations: 16 Datetime: 06/17/2024 13:50 Epidural Procedure: Test Dose Datetime: 06/17/2024 13:38 Comfort Measures: Breathing/Relaxation Datetime: 06/17/2024 13:36 PROCEDURE TIME OUT Procedure Verify: Correct Patient Identity; Correct Side and Site are Marked; Accurate Procedure Co nsent Form; Agreement on Procedure to be Done; Correct Patient Position ANESTHESIA Anesthesia Plans: Epidural Epidural Positioning: Sitting Datetime: 06/17/2024 13:15 Hygiene: Underpad Changed; Linens Changed Datetime: 06/17/2024 12:06 Membrane Comments: east balloon placed 80cc uterus/40cc vaginal Cervical Ripening Agents: East Balloon Datetime: 06/17/2024 09:25 Temperature Route: Oral Datetime: 06/17/2024 07:25 MATERNAL ASSESSMENT Level of Consciousness: Alert Nausea/Vomiting: Denies RUQ Epigastric Pain: Denies Datetime: 06/17/2024 07:05 Actions for Decelerations: Other Datetime: 06/16/2024 17:06 Stage of : Labor
== END 2024-06-20 14:55 | disposition home or self-care (01) | DRG 788 ==
LOC: WFO 16:49 → FBP 16:52 → WFO 16:55 → FBP 16:56
PROVIDERS: ADMIT Obstetrics & Gynecology; ATTEND Obstetrics & Gynecology
PROC: 3E033VJ Introduction of Other Hormone into Peripheral Vein, Percutaneous Approach (ICD-10-PCS; 2024-06-16)
PROC: 0U7C7ZZ Dilation of Cervix, Via Natural or Artificial Opening (ICD-10-PCS; 2024-06-17)
PROC: 10907ZC Drainage of Amniotic Fluid, Therapeutic from Products of Conception, Via Natural or Artificial Opening (ICD-10-PCS; 2024-06-18)
PROC: 10H07YZ Insertion of Other Device into Products of Conception, Via Natural or Artificial Opening (ICD-10-PCS; 2024-06-18)
PROC: 10D00Z1 Extraction of Products of Conception, Low, Open Approach (ICD-10-PCS; principal; 2024-06-18 08:15)
DX: O99.284 Endocrine, nutritional and metabolic diseases complicating childbirth (principal); Z37.0 Single live birth; E03.9 Hypothyroidism, unspecified; O99.824 Streptococcus B carrier state complicating childbirth; O99.214 Obesity complicating childbirth; E66.01 Morbid (severe) obesity due to excess calories; O62.0 Primary inadequate contractions; Z3A.39 39 weeks gestation of pregnancy; O76 Abnormality in fetal heart rate and rhythm complicating labor and delivery
CPT/HCPCS: 36415; 80053; 82570; 84156; 84443; 85025; 86850; 86900; 86901; 86920; 90716; 90744; A9270; J1650; J2795; J7120